=== PATIENT | female | born 1980 | race Caucasian/White ===

== ENCOUNTER → 2019-10-26 | Outpatient (CLI) | payer OTHER ==
--- NOTE | 2019-10-26 13:35 | REP ---
Clinical: Anatomical evaluation. Comparison: None . Findings: Examination demonstrates a single live intrauterine in breech presentation. motion is identified by technologist. Placenta is noted anterior and grade zero without evidence for placenta previa or abruption. Amniotic fluid volume is normal. Cervix measures 5.4 cm in length and appears closed. No evidence for nuchal cord. Gestational age by LMP 18 weeks 5 days with MARIANA 03/23/2020 . Gestational age by current measurements 18 weeks 5 days with MARIANA 03/23/2020 . FHR equals 147 beats per minute. BPD 4.2 cm 18 weeks 5 days HC 15.9 cm 18 weeks 5 days AC 13.3 cm 18 weeks 5 days FL 2.9 cm 18 weeks 6 days HL 2.7 cm 18 weeks 4 days HC/AC ratio 1.20 Estimated weight 259 grams ( 51st percentile). Anatomical assessment demonstrates normal structures including cranium, choroid plexus, cavum, cerebellum/posterior fossa, facial features, lungs, diaphragm, stomach, cord insertion, kidneys/bladder, spine, and extremities. Limited evaluation of the heart/ventricular outflow tracts. Single umbilical artery noted. Impression: 1. Single live intrauterine in breech presentation demonstrating appropriate interval growth. 2. Single umbilical artery. 3. Anatomical limitations as noted above. Electronically Signed by Parvez Cao MD 10/26/2019 01:27 P
== END ==
LOC: M RAD 10:52
PROVIDERS: ATTEND Registered Nurse Maternal Newborn
DX: Z3A.16 16 weeks gestation of pregnancy (principal)

== ENCOUNTER → 2020-01-02 | Outpatient (CLI) | payer OTHER ==
--- NOTE | 2020-01-03 06:54 | REP ---
Clinical: Anatomical evaluation. Comparison: 10/26/2019 . Findings: Examination demonstrates a single live intrauterine in cephalic presentation. motion is identified by technologist. Placenta is noted anterior and grade I without evidence for placenta previa or abruption. Amniotic fluid volume is normal. Cervix measures 4.4 cm in length and appears closed. No evidence for nuchal cord. Gestational age by LMP 28 weeks 3 days with MARIANA 03/23/2020 . Gestational age by current measurements 28 weeks 6 days with MARIANA 03/20/2020 . FHR equals 152 beats per minute. Estimated weight 1261 grams ( 48th percentile). Amniotic fluid index: 14.7 cm Umbilical cord SD ratio: 3.17 Anatomical assessment demonstrates normal structures including cranium, choroid plexus, cavum, cerebellum/posterior fossa, facial features, lungs, four-chamber heart/ventricular outflow tracts, diaphragm, stomach, cord insertion/two-vessel cord, kidneys/bladder, and spine. A single umbilical artery noted. Impression: 1. Single live intrauterine in cephalic presentation demonstrating appropriate interval growth. 2. Two-vessel cord (single umbilical artery). Electronically Signed by Parvez Cao MD 01/03/2020 06:45 A
== END ==
LOC: M RAD 09:19
PROVIDERS: ATTEND Registered Nurse Maternal Newborn
DX: Z3A.25 25 weeks gestation of pregnancy (principal)

== ENCOUNTER → 2020-02-26 | Outpatient (CLI) | payer OTHER ==
--- NOTE | 2020-02-27 06:17 | REP ---
Clinical: growth and well-being Comparison: 01/02/2020 . Findings: Examination demonstrates a single live intrauterine in cephalic presentation. motion is identified by technologist. Placenta is noted anterior and grade I I without evidence for placenta previa or abruption. Amniotic fluid volume is normal. Cervix appears closed. No evidence for nuchal cord. Gestational age by LMP 36 weeks 2 days with MARIANA 03/23/2020 . Gestational age by current measurements 35 weeks 4 days with MARIANA 03/28/2020 . FHR equals 147 beats per minute. Estimated weight 2888 grams ( 51st percentile). Single umbilical artery again noted. Amniotic fluid index: 11.5 cm Biophysical profile score: 8/8 Umbilical cord SD ratio: 2.22 (1.88 - 2.88). Impression: 1. Single live advanced gestation in cephalic presentation demonstrating appropriate estimated weight/growth. 2. Biophysical profile score and amniotic fluid volume are normal. Electronically Signed by Parvez Cao MD 02/27/2020 06:08 A
== END ==
LOC: M RAD 09:13
PROVIDERS: ATTEND Obstetrics & Gynecology
DX: O35.1XX0 Maternal care for (suspected) chromosomal abnormality in fetus, not applicable or unspecified (principal); Z3A.36 36 weeks gestation of pregnancy; Q27.0 Congenital absence and hypoplasia of umbilical artery

== ENCOUNTER 2020-03-12 08:28 | Inpatient (IN) | payer OTHER ==
[~2020-03-12] VITALS: Ht 167.6 cm; Wt 92.3 kg
[2020-03-12] VITALS (10 sets, daily range): BP systolic 117–136; BP diastolic 55–81
[2020-03-12] MEDS ORDERED: MAGN1CAP PO (08:49)
[2020-03-12] MEDS ORDERED: STUACAP PO (08:49)
[2020-03-12] MEDS ORDERED: FERR325T3 PO (08:50)
[2020-03-12] MEDS ORDERED: LR 1,000 ML IV SCH (09:12)
[2020-03-12] MEDS ORDERED: OXYTOCIN DRIP 30 UNITS in IV 1 EA IV SCH ×2 (09:15→14:40)
[2020-03-12 09:35] LABS: BASO # 0.1 10^3/uL (0.0-0.2); BASO % 0.7 % (0.0-1.0); EOS # 0.1 10^3/uL (0.0-0.5); EOS % 0.8 % (0.0-3.0); HEMATOCRIT 39.3 % (36.0-47.0); LYMPH % 15.2 % (24.0-44.0); MEAN CORPUSCULAR HEMOGLOBIN 30.5 pg (27.0-33.0); MEAN CORPUSCULAR HGB CONC 33.1 g/dl (32.0-36.5); MEAN CORPUSCULAR VOLUME 92.3 fl (80.0-96.0); MONO # 0.8 10^3/uL (0.0-0.8); MONO % 5.8 % (0.0-5.0); NEUTROPHILS # 9.9 10^3/uL (1.5-8.5); NEUTROPHILS % 75.2 % (36.0-66.0); PLATELET COUNT, AUTOMATED 142 10^3/uL (150-450); RED BLOOD COUNT 4.26 10^6/uL (4.00-5.40); WHITE BLOOD COUNT 13.2 10^3/uL (4.0-10.0)
[2020-03-12] MEDS ORDERED: METHYLERGONOVINE MALEATE 0.2 MG TAB PO PRN (14:45)
[2020-03-12] MEDS ORDERED: IBUPROFEN 800 MG TAB PO PRN (14:45)
[2020-03-12] MEDS ORDERED: METOCLOPRAMIDE INJ 10MG/2ML VIAL (J2765 PER 1) IV PRN (14:45)
[2020-03-12] MEDS ORDERED: ONDANSETRON 4MG/2ML VIAL IV PRN (14:45)
[2020-03-12] MEDS ORDERED: MEASLES,MUMPS,RUBELLA VACCINE INJ (MMR-II) (90707) SC SCH (14:45)
[2020-03-12] MEDS ORDERED: ANUSOL HC CREAM 30GM TOP PRN (14:45)
[2020-03-12] MEDS ORDERED: DIBUCAINE 1% OINTMENT 30GM TOP PRN (14:45)
[2020-03-12] MEDS ORDERED: ACETAMINOPHEN 500 MG TAB PO PRN (14:45)
[2020-03-12] MEDS ORDERED: DOCUSATE SODIUM 100MG CAPSULE PO PRN (14:45)
[2020-03-12] MEDS ORDERED: MOM 30ML SUSPENSION UDC PO PRN (14:45)
[2020-03-13 06:25] VITALS: BP 127/80
[2020-03-13] MEDS ORDERED: DIBU10OI TOP (08:22)
[2020-03-13] MEDS ORDERED: IBUP80TA PO (08:22)
[2020-03-13] MEDS ORDERED: ACET-683 PO (08:22)
[2020-03-13] MEDS ORDERED: PRENATAL VITAMINS CHEWABLE TABLET PO SCH (09:00)
== END 2020-03-13 15:00 | disposition home or self-care (01) | DRG 807 ==
LOC: M LDI 08:28 → M OBS 16:12
PROVIDERS: ADMIT Advanced Practice Midwife; ATTEND Advanced Practice Midwife
PROC: 10E0XZZ Delivery of Products of Conception, External Approach (ICD-10-PCS; principal; 2020-03-12)
DX: O80 Encounter for full-term uncomplicated delivery (principal); Z37.0 Single live birth; Z3A.38 38 weeks gestation of pregnancy

== ENCOUNTER → 2024-11-20 | Outpatient (CLI) | payer OTHER ==
[~2024-11-20] MED LIST: ACET-683 PO; DIBU28OI2 TOP; FERR325T3 PO; IBUP80TA PO; MAGN1CAP PO; STUACAP PO
== END ==
LOC: M WHC 15:24
PROVIDERS: ATTEND Nurse Practitioner Primary Care
DX: Z12.31 Encounter for screening mammogram for malignant neoplasm of breast (principal)